=== PATIENT | male | born 1965 | race Caucasian/White ===

== ENCOUNTER 2021-01-11 12:30 | Observation (INO) ==
[2021-01-12] MEDS ORDERED: Acetaminophen 325 MG TABLET PO PRN (10:01)
[2021-01-12] MEDS ORDERED: Ondansetron 4 MG/2 ML VIAL IVP PRN (10:01)
[2021-01-12] MEDS ORDERED: Melatonin 3 MG TABLET PO PRN (10:01)
[2021-01-12] MEDS ORDERED: Naloxone 0.4 MG/ML INJ IVP PRN (10:01)
[2021-01-12 10:50] LABS: Hematocrit 45.9 % (37.5-50.1); Hemoglobin 14.7 g/dL (12.9-16.9); Mean Corpuscular Volume 96.8 fL (83.0-100.0); Mean Platelet Volume 10.5 fL (9.4-12.4); Platelet Count 283 K/mcL (140-400); Red Blood Count 4.74 M/mcL (4.19-5.50); Red Cell Distribution Width 13.3 % (11.5-14.5); White Blood Count 9.9 K/mcL (4.3-11.1)
[2021-01-12 10:51] LABS: INR 1.2; Prothrombin Time 13.6 Seconds (9.4-12.1)
[2021-01-12 11:01] LABS: BUN/Creatinine Ratio 13 (6-26); Blood Urea Nitrogen 10 mg/dL (6-20); Calcium 8.9 mg/dL (8.6-10.3); Carbon Dioxide 29 mEq/L (23-29); Chloride 103 mEq/L (98-107); Glucose 93 mg/dL (70-105); Osmolality,Calculated 291 (280-300); Potassium 3.5 mEq/L (3.5-5.1); Sodium 141 mEq/L (136-145); eGFR For African Americans > 60 (> 60); eGFR For Non-African Americans > 60 (> 60)
[2021-01-12] MEDS: Tiotropium 10 INH DOSE IH SCH (11:17)
[2021-01-12] MEDS: Budesonide/Formoterol 80/4.5 1 PUFF INH IH SCH ×2 (11:30→20:19)
[2021-01-12] MEDS: traZODone 50 MG TABLET PO SCH (21:00)
[2021-01-13] MEDS: Cyanocobalamin (B-12) 1,000 MCG TABLET PO SCH (07:25)
[2021-01-13] MEDS: traZODone 50 MG TABLET PO SCH ×2 (07:25→20:47)
[2021-01-13] MEDS: Tiotropium 10 INH DOSE IH SCH (09:49)
[2021-01-13] MEDS: Budesonide/Formoterol 80/4.5 1 PUFF INH IH SCH ×2 (09:49→21:26)
[2021-01-13] MEDS: Nicotine 14 MG PATCH.TD24 TD SCH ×2 (14:12→20:52)
[2021-01-13] MEDS: metroNIDAZOLE 500 MG TABLET PO SCH ×3 (14:12→22:12)
[2021-01-13] MEDS: Sucralfate 1 GM TABLET PO SCH ×3 (14:12→20:46)
[2021-01-14 07:19] VITALS: BP 126/76
[2021-01-14] MEDS: Sucralfate 1 GM TABLET PO SCH (08:39)
[2021-01-14] MEDS: Cyanocobalamin (B-12) 1,000 MCG TABLET PO SCH (08:39)
[2021-01-14] MEDS: traZODone 50 MG TABLET PO SCH (08:39)
[2021-01-14] MEDS: metroNIDAZOLE 500 MG TABLET PO SCH (08:39)
[2021-01-14] MEDS: Tiotropium 10 INH DOSE IH SCH (09:19)
[2021-01-14] MEDS: Budesonide/Formoterol 80/4.5 1 PUFF INH IH SCH (09:19)
== END 2021-01-14 12:25 | disposition home or self-care (01) ==
LOC: INPPIK
PROVIDERS: ADMIT Family Medicine; ATTEND Family Medicine